=== PATIENT | female | born 1985 | race Caucasian/White ===

== ENCOUNTER 2017-05-01 16:36 | Inpatient (IN) | payer OTHER, SELFPAY ==
[~2017-05-01] VITALS: Ht 167.6 cm; Wt 55.0 kg
[2017-05-01] MEDS ORDERED: ADDE20CA3 PO (16:51)
[2017-05-01] MEDS ORDERED: LORazepam 2 MG TAB PO ONE (17:45)
[2017-05-01 18:06] LABS: MEAN CORPUSCULAR HEMOGLOBIN 31.1 pg (27.0-33.0); MEAN CORPUSCULAR HGB CONC 33.3 g/dl (32.0-36.5); MEAN CORPUSCULAR VOLUME 93.2 fl (80.0-96.0); PLATELET COUNT, AUTOMATED 419 10^3/uL (150-450); RED CELL DISTRIBUTION WIDTH 14.5 % (11.5-14.5); WHITE BLOOD COUNT 8.8 10^3/uL (4.0-10.0)
[2017-05-01 18:10] LABS: CONTROL LINE HCG INT CTR LINE PRESENT
[2017-05-01 18:16] LABS: METHADONE URINE NEGATIVE (NEGATIVE)
[2017-05-01 18:36] LABS: ALBUMIN 3.8 GM/DL (3.2-5.2); ALBUMIN/GLOBULIN RATIO 1.31 (1.00-1.93); ALKALINE PHOSPHATASE 52 U/L (45-117); ALT/SGPT 28 U/L (12-78); ANION GAP 9 MEQ/L (8-16); AST/SGOT 29 U/L (7-37); BILIRUBIN,DIRECT 0.1 MG/DL (0.0-0.2); BILIRUBIN,TOTAL 0.3 MG/DL (0.2-1.0); BLOOD UREA NITROGEN 13 MG/DL (7-18); CARBON DIOXIDE LEVEL 25 MEQ/L (21-32); CHLORIDE LEVEL 106 MEQ/L (98-107); CREATININE FOR GFR 0.76 MG/DL (0.55-1.02); GLOMERULAR FILTRATION RATE > 60.0 (>60); GLUCOSE, FASTING 90 MG/DL (70-105); POTASSIUM SERUM 4.2 MEQ/L (3.5-5.1); SODIUM LEVEL 140 MEQ/L (136-145); TOTAL PROTEIN 6.7 GM/DL (6.4-8.2)
--- NOTE | 2017-05-01 19:11 | REP ---
CT Head without contrast HISTORY: Behavior change COMPARISON: None There is no intraparenchymal hemorrhage, acute infarct, mass or midline shift. The ventricular system is normal in appearance. There is no extra cerebral collection. There is no fracture. The visualized sinuses are clear. IMPRESSION: There is no intracranial lesion. Signed by Toan Valenzuela MD 05/01/2017 07:02 P
[2017-05-01] MEDS ORDERED: AMPH20CA PO (19:34)
[2017-05-01] MEDS ORDERED: MAALOX 30 ML SUSP *UDC PO PRN (20:45)
[2017-05-01] MEDS ORDERED: ACETAMINOPHEN TAB 650MG DOSE (2X325MG) PO PRN (20:45)
[2017-05-01] MEDS ORDERED: MOM 30ML SUSPENSION UDC PO PRN (20:45)
[2017-05-01] MEDS ORDERED: traZODone 50 MG TAB PO PRN (20:45)
[2017-05-02 00:30] VITALS: BP 135/88
[2017-05-02 06:31] VITALS: BP 138/79
[2017-05-02] MEDS ORDERED: BENZTROPINE 1 MG TAB PO PRN (09:15)
[2017-05-02] MEDS ORDERED: OLANZapine 5 MG TAB PO PRN (09:15)
[2017-05-02] MEDS ORDERED: OLANZapine 5 MG TAB PO ONE (09:30)
[2017-05-02] MEDS ORDERED: PALIPERIDONE 3 MG ER TAB (INVEGA) PO ONE ×2 (09:30→10:00)
[2017-05-02 18:00] VITALS: BP 112/65
--- NOTE | 2017-05-02 19:36 | MHHPE ---
DATE OF ADMISSION: 05/01/2017 LEGAL STATUS AT ADMISSION: 9.39 legal status. CHIEF COMPLAINT: "I think I should be my oldest daughter." HISTORY OF PRESENT ILLNESS: A 31-year-old female with unknown past psychiatric history, admitted on a 9.39 legal status. According to the records, patient was brought to the emergency department by [place] police at spouse's request. According to the , patient was acting erratically and was floridly psychotic. According to the record, the PSA at emergency department (ED) received two calls from friends regarding her mental state prior to her 's phone call. reports that she has become increasingly psychotic over the last few months to the point where she is completely delusional and disorganized. He states that she is convinced that her 5-year-old daughter when they were at [facility] a couple of years ago and has been resurrected here in [place], that she has been expressing the belief that they are in a parallel universe, and she constantly asks questions about world events. He also stated that she has been taking the car, driving around the neighborhood erratically at high rates of speed, and he is concerned that she may unintentionally harm someone. During the interview at the ED, is reported as being loose and disorganized. Stated that everyone here is and "currently in heaven" and talking about alternative dimensions of the world. During the interview today, patient continues to be delusional, anxious, preoccupied about stated above. Patient is unable to stay on track or engage in a formal evaluation or mental status examination. Is unable to provide any history. She is extremely tangential. Asking about her ability to sleep, patient reports that is sleeping well but then says that does not want to go to sleep and that she is worried. She has been taking Adderall prescribed by her primary care physician. It is unknown if she is managing this medication well. Patient's urine drug screen at ED was positive for marijuana and amphetamines. Patient continues to talk about the parallel universe and is loose and disorganized. PAST MEDICAL HISTORY: Patient denies any medical problems at this point, but she is unreliable. PAST PSYCHIATRIC HISTORY: Is unknown. Apparently she was diagnosed with adult attention deficit hyperactivity disorder (ADHD) and was prescribed Adderall by Dr. Frausto, her primary care physician. FAMILY HISTORY: Unknown psychiatric family history. SUBSTANCE ABUSE HISTORY: Patient denies any problems with drugs or alcohol; however, she is unreliable, and her urine drug screen was positive for marijuana and amphetamines. It is a question if she is taking the Adderall as prescribed. SOCIAL HISTORY: Patient is , and the appears to be supportive; however, at this point other details about her social history cannot be obtained. REVIEW OF SYSTEMS: Patient is uncooperative and unwilling to provide information. PHYSICAL EXAMINATION: As per physician technical staff assistant. LABORATORY DATA AT ADMISSION: Her CBC was unremarkable. CMP within normal limits. TSH within normal limits. test is negative. Urine drug screen was positive for amphetamines and cannabis. Blood alcohol level is negative. MENTAL STATUS EXAMINATION: Patient is unable to cooperate with formal mental status. Patient is dressed in [facility]. Patient is anxious, defensive. Has fair eye contact. Mood is anxious. Affect is labile. Patient is oriented to time, place, person, and situation. Attention and concentration are poor. Memory is impaired. Patient does not appear to have auditory or visual hallucinations. Patient does have paranoid delusions. Patient denies suicidal or homicidal ideation. Judgment and insight are very poor. DIAGNOSES: [place] I: Unspecified psychotic disorder, rule out substance-induced psychosis. [place] II: Deferred. [place] III: None acute. INITIAL TREATMENT TINO: Patient was admitted on a 9.39 legal status. Complete history could not be obtained. With her permission, family will be contacted and database will be expanded. Her medication regimen will be reviewed and changed accordingly. She will be provided with protected environment. She will be treated with individual, group, and milieu therapy. She will also receive supportive psychoeducation. Discharge planning will commence immediately. Length of stay will be between 5-7 days. Outpatient followup will be strongly recommended. The treatment plan will focus initially on altered thoughts, risk for suicide, risk for harm to others.
[2017-05-02] MEDS: PALIPERIDONE 3 MG ER TAB (INVEGA) PO SCH (21:00)
[2017-05-02] MEDS: QUEtiapine FUMARATE 100 MG TAB PO SCH (21:00)
[2017-05-03 06:28] VITALS: BP 118/80
[2017-05-03 18:00] VITALS: BP 135/84
--- NOTE | 2017-05-03 20:28 | MHIPN ---
DATE: 05/03/2017 HISTORY: 31-year-old female admitted to our unit with paranoid delusions. Patient was also disorganized. Patient was talking about being in a parallel universe, making statements such as "everyone is and currently in heaven" and "alternative dimensions of the world." She was on Adderall prescribed by her primary care physician. It is unknown if patient was managing this medication appropriately. MEDICATIONS: - Seroquel 100 mg by mouth nightly - Risperdal 3 mg by mouth nightly SUBJECTIVE: "I want to see my and hold him." OBJECTIVE: No major changes from yesterday. Patient continues labile, at times tearful, disorganized and delusional, has refused to take psychotropic medication. MENTAL STATUS EXAMINATION: Patient is dressed in [facility]. Patient is partially cooperative, has poor eye contact. Speech is slow and monotone. Mood is depressed and anxious. Affect is tearful. Patient continues with paranoid delusions, possible auditory hallucinations. Unable to test attention, concentration, and memory. Insight and judgment is poor. ASSESSMENT: 1. Psychosis. 2. Paranoid delusions. PLAN: 1. Continue offering Seroquel 100 mg by mouth nightly and Invega 3 mg by mouth nightly. 2. Continue close observation.
[2017-05-03] MEDS: PALIPERIDONE 3 MG ER TAB (INVEGA) PO SCH (20:57)
[2017-05-03] MEDS: QUEtiapine FUMARATE 100 MG TAB PO SCH (20:57)
[2017-05-03] MEDS: NITROFURANTOIN (MACROBID) 100 MG CAP PO SCH (21:36)
--- NOTE | 2017-05-03 22:40 | HPE ---
DATE OF ADMISSION: 05/03/2017 HISTORY OF PRESENT ILLNESS: Please refer to psychiatric history and evaluation for further details on this admission. This examination and history is intended for medical issues, which may need treatment, followup or consult on this 31-year-old female. ALLERGIES: UNKNOWN ANTIBIOTICS; the mother believes it is PENICILLIN. The patient states it might have been CIPRO or because she has had so many urinary tract infections (UTIs), the Cipro does not work for her anymore. PRIMARY CARE PROVIDER: Dr. Evon Redman. SOCIAL HISTORY: She is . Ethyl alcohol (EtOH) occasionally once or twice a month. Smokes one pack of cigarettes per day. Recreational drug use none. PAST MEDICAL HISTORY: Attention deficit hyperactivity disorder (ADHD). PAST SURGICAL HISTORY: 1. Tonsillectomy and adenoidectomy. 2. [place] teeth extraction. HOME MEDICATIONS: Adderall 20 mg by mouth twice a day. FAMILY HISTORY: Noncontributory. LABORATORY DATA: CBC was normal. CMP was normal. Urine was positive for amphetamines and cannabinoids. IMAGING: Head CT: There is no intracranial lesion. REVIEW OF SYSTEMS: 10-systems review was done. Her only complaint was of hematuria, dysuria, frequency. She feels like she is getting a UTI. No fever, chills or flank pain. Does have a slight low back pain. No nausea, vomiting or diarrhea. Otherwise, review of systems unremarkable. EKG baseline is pending. PHYSICAL EXAMINATION: A 31-year-old female patient in no acute distress. Height 66 inches. Weight 55 kg. Body mass index (BMI) 19.6. VITAL SIGNS: Blood pressure 118/80, pulse 86, respirations 18, temperature 98.4. GENERAL: Patient is alert and oriented times three. HEENT: Pupils equal and react to light. Extraocular movement intact. Sclerae clear. Conjunctivae normal. No facial asymmetry. Pharynx, tongue, gums pink and moist. Tongue is midline. NECK: Supple without lymphadenopathy. No thyromegaly. No goiter. Carotids 2+ without bruits. CHEST: Clear to auscultation without wheeze or retraction. HEART: Regular. ABDOMEN: Benign. Bowel sounds are positive. No costovertebral angle tenderness. GENITOURINARY/RECTAL: Not done. EXTREMITIES: Equal strength, full range of motion. No cyanosis, clubbing or edema. Peripheral pulses equal and palpable bilaterally. SKIN: Warm and dry. Turgor good. IMPRESSION AND PLAN: 1. Psychiatric plan per psychiatry. 2. History of attention deficit hyperactivity disorder (ADHD). 3. Hematuria, dysuria, frequency, probable urinary tract infection. Urinalysis (UA) sent. Urine for culture and sensitivity sent. Patient encouraged to drink clear, non-caffeinated liquids at least 8-10 glasses per day. Will start on Macrobid 100 mg by mouth twice a day. Followup on culture.
[2017-05-04 06:34] VITALS: BP 129/61
[2017-05-04] MEDS: NITROFURANTOIN (MACROBID) 100 MG CAP PO SCH ×2 (08:58→21:30)
--- NOTE | 2017-05-04 16:04 | MHIPN ---
DATE: 05/04/2017 HISTORY: 31-year-old female admitted for paranoid delusions. Patient was also disorganized, was talking about a parallel universe, making statements such as "everyone is and currently in heaven" and "alternative dimensions of the world." MEDICATIONS: - Seroquel 100 mg by mouth nightly - Risperdal 3 mg by mouth nightly SUBJECTIVE: "My stomach hurts." OBJECTIVE: Patient has improved a little bit from the paranoia/disorganization point of view. Patient took the medication last night. She is slightly sedated this morning. She continues to be emotional and labile, tearful and anxious. No evidence of side effects from the medication other than some sedation. MENTAL STATUS EXAMINATION: Patient is dressed in [facility]. Patient is partially cooperative. Patient is anxious, labile, and tearful, continues paranoid. No evidence of hallucinations. Memory, attention, and concentration are fair. Patient is able to contract for safety while in the hospital. Insight and judgment is limited. ASSESSMENT: 1. Psychosis. 2. Paranoid delusions. 3. High anxiety. PLAN: 1. Continue with Seroquel 100 mg by mouth nightly. 2. Continue Risperdal 3 mg by mouth nightly. 3. Continue close observation. 4. Continue medication management, individual and group therapy.
[2017-05-04 18:00] VITALS: BP 124/65
[2017-05-04] MEDS: QUEtiapine FUMARATE 100 MG TAB PO SCH (21:30)
[2017-05-04] MEDS: PALIPERIDONE 3 MG ER TAB (INVEGA) PO SCH (21:30)
[2017-05-05 06:44] VITALS: BP 141/60
[2017-05-05] MEDS: NITROFURANTOIN (MACROBID) 100 MG CAP PO SCH ×2 (09:47→21:40)
[2017-05-05] MEDS ORDERED: traZODone 50 MG TAB PO PRN (14:15)
--- NOTE | 2017-05-05 15:47 | MHIPN ---
DATE: 05/05/2017 HISTORY: A 31-year-old female admitted with paranoid delusions. The patient was also disorganized, was talking about a parallel universe, making statements such as, "everyone is and currently in heaven" and also "alternative dimensions of the world." MEDICATIONS: - Seroquel 100 mg by mouth at bedtime - Risperdal 3 mg by mouth at bedtime SUBJECTIVE: "I'm feeling a little better but my does not want to speak with me." OBJECTIVE: The patient has improved since admission. The patient is no longer paranoid, does not have auditory or visual hallucinations. The patient is somewhat tearful because she says that her does not want to speak with her and she may have to go and live with her mother. The patient is reporting some excessive sedation from the Seroquel. MENTAL STATUS EXAMINATION: The patient is dressed in [facility]. The patient is partially cooperative. The patient continues anxious but improved. She is less labile, less tearful. No evidence of paranoia. No auditory or visual hallucinations. Memory, attention, and concentration are fair. The patient is able to contract for safety while in the hospital. Insight and judgment is improving. ASSESSMENT: 1. Psychosis. 2. Paranoid delusions. 3. High anxiety. PLAN: 1. Discontinue Seroquel. 2. Discontinue Invega. 3. Start trazodone 50 mg by mouth at bedtime as needed for insomnia. 4. Continue medication management, individual and group therapy.
[2017-05-05 18:17] VITALS: BP 133/76
[2017-05-06 06:23] VITALS: BP 119/84
[2017-05-06] MEDS: NITROFURANTOIN (MACROBID) 100 MG CAP PO SCH (08:29)
[2017-05-06] MEDS ORDERED: TRAZO50TA PO (14:33)
--- NOTE | 2017-05-06 19:13 | MHDS ---
DATE OF ADMISSION: 05/01/2017 DATE OF DISCHARGE: 05/06/2017 LEGAL STATUS AT ADMISSION: 9.39 legal status. HISTORY OF PRESENT ILLNESS: A 31-year-old female with unknown psychiatric history, admitted to our unit on a 9.39 legal status. According to the record, the patient was brought to the emergency department (ED) by [place] [employer] at spouse request. According to the , the patient was acting erratically and was floridly psychotic. According to the record, the PSA at the emergency department received two calls from friends regarding her mental state prior to her 's phone call. reports that she has become increasingly psychotic over the last few months to the point where she is completely delusional and disorganized. He states that she is convinced that her 5-year-old daughter when they were at [employer] a couple of years ago and has been resurrected here in [place], that she has been expressing the belief that they are in a parallel universe, and she constantly asks questions about world events. He also states that she has been taking the car, driving around the neighborhood erratically at high speed rates. He is concerned that she may unintentionally harm someone. During the interview at the ED, she is reported as being loose and disorganized. She stated that everyone here is and "currently in heaven" and talking about alternative dimensions of the world. The interview in our unit showed that the patient is delusional, anxious, and preoccupied about the above. The patient is unable to stay on track or engage in a formal evaluation or mental status examination. She is unable to provide any history. She is extremely tangential, asking about her ability to sleep. The patient reports that she is sleeping well but then she says that she could not go to sleep because she was worried. She also reported that she was taking Adderall prescribed by her outpatient physician and it was unknown if she was managing well this medication. Her urine drug screen was positive for marijuana and amphetamines. LABORATORY DATA AT ADMISSION: Her CBC was unremarkable. CMP within normal limits. TSH within normal limits. test is negative. Blood alcohol level is negative. Urine drug screen was positive for amphetamines and cannabis. HOSPITAL COURSE: After the first evaluation, it was decided to start the patient on Invega 3 mg by mouth at bedtime and Seroquel 100 mg by mouth at bedtime. She refused the medication the first day but then started to take it the second. She reported that she was taking an unknown number of Adderall, so she admitted that she was misusing the Adderall. As the hospital course progressed, her delusions cleared. She was able to sleep better and she was more insightful. By 05/06/2017, the patient is at baseline with no auditory or visual hallucinations or delusions. The Invega and Seroquel were discontinued 24 hours before and she took 50 mg of trazodone that was effective for her to be able to sleep correctly. At the moment of discharge, the patient is in a stable condition with no auditory or visual hallucinations, delusions, suicidal or homicidal ideation. At this point, the patient does not meet criteria for involuntary hospitalization. A meeting was held with her . He was very worried about her but is supportive, so she was discharged on 05/06/2017. MEDICATIONS AT DISCHARGE: Trazodone 50 mg by mouth at bedtime as needed for insomnia. MENTAL STATUS EXAMINATION AT DISCHARGE: The patient is dressed in [facility]. The patient is cooperative. Speech is clear, coherent with normal rate and is spontaneous. The patient has good eye contact. Mood is slightly anxious. Affect is appropriate with mood. The patient is oriented to time, place, person and situation, maintains attention and concentration correctly. Instant recall, recent and remote memory are intact. Thought processes are coherent, logical and goal-directed. The patient does not have auditory or visual hallucinations. The patient does not have paranoid, persecutory, somatic, grandiose or adventist delusions. The patient denies suicidal or homicidal ideation. Insight and judgment are fair. DISCHARGE DIAGNOSES: AXIS I: Substance-induced psychosis (Adderall). Adderall abuse. AXIS II: Deferred. AXIS III: None acute. CONDITION AT DISCHARGE: Stable. No suicidal or homicidal ideation. No auditory or visual hallucinations. No delusions. INSTRUCTIONS TO THE PATIENT: The patient is to continue taking her medications as prescribed and followup appointments. She is advised to maintain absolute sobriety from drugs and alcohol. The patient has scheduled appointment for individual psychotherapy, medication management, and primary care physician.
--- NOTE | 2017-05-07 00:08 | ECGEPIP ---
Stationary ECG Study [facility] Test Date: 2017-05-04 Pat Name: TRACE CALVO Department: Room: [place] [address] Gender: F Air Brush Artist: : [id number] Requested By: Eli Emery [facility] Order Number: [id number] Reading MD: Chase Fitch Measurements Intervals Shock Rate: 73 P: 55 PA: 145 QRS: 73 QRSD: 80 T: 71 QT: 346 QTc: 383 Interpretive Statements SINUS RHYTHM No prior tracing in the system Electronically Signed On 05-07-2017 0:07:52 EST by Chase Fitch
== END 2017-05-06 15:25 | disposition home or self-care (01) | DRG 776 ==
LOC: M ED 16:36 → M ED INP 20:33 → M PSY 05-02 00:30
PROVIDERS: ADMIT Psychiatry & Neurology Psychiatry; ATTEND Psychiatry & Neurology Psychiatry
DX: F15.159 Other stimulant abuse with stimulant-induced psychotic disorder, unspecified (principal); N39.0 Urinary tract infection, site not specified; Z79.899 Other long term (current) drug therapy; Z88.1 Allergy status to other antibiotic agents; F17.210 Nicotine dependence, cigarettes, uncomplicated; F90.8 Attention-deficit hyperactivity disorder, other type; B96.20 Unspecified Escherichia coli [E. coli] as the cause of diseases classified elsewhere